=== PATIENT | male | born 1995 | race Caucasian/White ===

== ENCOUNTER → 2017-03-19 | Outpatient (CLI) | payer BC, OTHER | LOC: LAB.R 09:10 | PROVIDERS: ATTEND Nurse Practitioner Family | DX: F90.9 Attention-deficit hyperactivity disorder, unspecified type (principal) | CPT/HCPCS: 80307 ==

== ENCOUNTER 2017-07-06 08:00 | Outpatient (CLI) | payer BC ==
[2017-07-11 02:06] LABS: AMPHETAMINE 3740 ng/mL (< 250); AMPHETAMINES POSITIVE ng/mL (< 500); BARBITURATES NEGATIVE ng/mL (< 300); BENZODIAZEPINES NEGATIVE ng/mL (< 100); CREATININE 63.1 mg/dL (>= 20.0); MARIJUANA METABOLITE NEGATIVE ng/mL (< 20); MEDMATCH AMPHETAMINE INCONSISTENT; MEDMATCH BARBITURATES CONSISTENT (-); MEDMATCH BENZODIAZEPINES CONSISTENT (-); MEDMATCH COCAINE METAB CONSISTENT (-); MEDMATCH MARIJUANA METAB CONSISTENT (-); MEDMATCH METHADONE METAB CONSISTENT (-); MEDMATCH METHAMPHETAMINE CONSISTENT (-); MEDMATCH OPIATES CONSISTENT (-); MEDMATCH OXYCODONE CONSISTENT (-); MEDMATCH PHENCYCLIDINE CONSISTENT (-); METHADONE METABOLITE NEGATIVE ng/mL (< 100); OPIATES NEGATIVE ng/mL (< 100); OXIDANT Negative mcg/mL (< 200); PHENCYCLIDINE NEGATIVE ng/mL (< 25)
== END 2017-07-06 23:59 | disposition home or self-care (01) ==
LOC: LAB.R 08:00
PROVIDERS: ATTEND Nurse Practitioner Family
DX: F90.9 Attention-deficit hyperactivity disorder, unspecified type (principal)
CPT/HCPCS: 80307

== ENCOUNTER 2017-10-19 08:00 | Outpatient (CLI) | payer BC ==
[2017-10-20 11:39] LABS: MUDS CUTOFF CONCENTRATIONS CUTOFF CONC BELOW:
[2017-10-20 11:55] LABS: AMPHETAMINE SCREEN,URINE POSITIVE (NEGATIVE); BENZODIAZEPINES SCREEN, URINE NEGATIVE (NEGATIVE); COCAINE SCREEN URINE NEGATIVE (NEGATIVE); METHADONE SCREEN, URINE NEGATIVE (NEGATIVE); METHAMPHETAMINES SCREEN, URINE NEGATIVE (NEGATIVE); OPIATE SCREEN, URINE NEGATIVE (NEGATIVE); OXYCODONE SCREEN, URINE NEGATIVE (NEGATIVE); PROPOXYPHENE SCREEN, URINE NEGATIVE (NEGATIVE); TRICYCLIC ANTIDEPRESSANT,URINE NEGATIVE (NEGATIVE)
== END 2017-10-19 23:59 | disposition home or self-care (01) ==
LOC: LAB.R 08:00
PROVIDERS: ATTEND Nurse Practitioner Family
DX: F90.9 Attention-deficit hyperactivity disorder, unspecified type (principal); Z79.899 Other long term (current) drug therapy
CPT/HCPCS: 80306

== ENCOUNTER 2018-07-21 08:00 | Outpatient (CLI) | payer BC ==
[2018-07-21 18:15] LABS: MUDS CUTOFF CONCENTRATIONS CUTOFF CONC BELOW:
[2018-07-21 19:01] LABS: AMPHETAMINE SCREEN,URINE POSITIVE (NEGATIVE); BENZODIAZEPINES SCREEN, URINE NEGATIVE (NEGATIVE); COCAINE SCREEN URINE NEGATIVE (NEGATIVE); METHADONE SCREEN, URINE NEGATIVE (NEGATIVE); METHAMPHETAMINES SCREEN, URINE NEGATIVE (NEGATIVE); OPIATE SCREEN, URINE NEGATIVE (NEGATIVE); OXYCODONE SCREEN, URINE NEGATIVE (NEGATIVE); PROPOXYPHENE SCREEN, URINE NEGATIVE (NEGATIVE); TRICYCLIC ANTIDEPRESSANT,URINE NEGATIVE (NEGATIVE)
== END 2018-07-21 23:59 | disposition home or self-care (01) ==
LOC: LAB.R 08:00
PROVIDERS: ATTEND Nurse Practitioner Family
DX: F90.9 Attention-deficit hyperactivity disorder, unspecified type (principal); Z79.899 Other long term (current) drug therapy
CPT/HCPCS: 80306

== ENCOUNTER 2018-12-15 08:00 | Outpatient (CLI) | payer BC ==
[2018-12-15 10:35] LABS: AMPHETAMINE SCREEN,URINE POSITIVE (NEGATIVE); COCAINE SCREEN URINE NEGATIVE (NEGATIVE); METHAMPHETAMINES SCREEN, URINE NEGATIVE (NEGATIVE); MUDS CUTOFF CONCENTRATIONS CUTOFF CONC BELOW:
[2018-12-15 10:36] LABS: BENZODIAZEPINES SCREEN, URINE NEGATIVE (NEGATIVE); METHADONE SCREEN, URINE NEGATIVE (NEGATIVE); OPIATE SCREEN, URINE NEGATIVE (NEGATIVE); OXYCODONE SCREEN, URINE NEGATIVE (NEGATIVE); PROPOXYPHENE SCREEN, URINE NEGATIVE (NEGATIVE); TRICYCLIC ANTIDEPRESSANT,URINE NEGATIVE (NEGATIVE)
== END 2018-12-15 23:59 | disposition home or self-care (01) ==
LOC: LAB 08:00
PROVIDERS: ATTEND Nurse Practitioner Family
DX: F90.9 Attention-deficit hyperactivity disorder, unspecified type (principal); Z79.899 Other long term (current) drug therapy
CPT/HCPCS: 80306

== ENCOUNTER 2021-10-25 08:00 | Outpatient (CLI) | payer BC, MEDICAID ==
[2021-10-25 16:05] LABS: BASOPHILS # (AUTO) 0.1 10^3/uL (0.0-0.1); BASOPHILS % (AUTO) 1.1 %; EOSINOPHILS # (AUTO) 0.2 10^3/uL (0.0-0.7); EOSINOPHILS % (AUTO) 4.4 %; HCT - HEMATOCRIT 45.9 % (42.0-52.0); HGB - HEMOGLOBIN 15.5 g/dL (14.0-18.0); LYMPHOCYTES # (AUTO) 2.1 10^3/uL (1.5-3.5); LYMPHOCYTES % (AUTO) 40.1 %; MEAN CORPUSCULAR HEMOGLOBIN 30.2 pg (27.0-31.0); MEAN CORPUSCULAR HGB CONC 33.8 g/dL (32.0-36.0); MEAN CORPUSCULAR VOLUME 89.5 fL (80.0-94.0); MEAN PLATELET VOLUME 9.7 fL (7.4-11.4); MONOCYTES # (AUTO) 0.4 10^3/uL (0.0-1.0); MONOCYTES % (AUTO) 8.4 %; NEUTROPHILS # (AUTO) 2.4 10^3/uL (1.5-6.6); NEUTROPHILS % (AUTO) 45.6 %; PLT - PLATELET COUNT 297 10^3/uL (130-450); RED BLOOD COUNT 5.13 10^6/uL (4.70-6.10); RED CELL DISTRIBUTION WIDTH 12.2 % (12.0-15.0); WHITE BLOOD COUNT 5.2 x10^3/uL (4.8-10.8)
[2021-10-25 16:27] LABS: ALBUMIN 4.4 g/dL (3.2-5.5); ALBUMIN/GLOBULIN RATIO 1.6 (1.0-2.2); BILIRUBIN,TOTAL 0.7 mg/dL (0.2-1.0); CALCIUM 9.2 mg/dL (8.5-10.3); CREATININE 0.7 mg/dL (0.6-1.2); TOTAL PROTEIN 7.2 g/dL (6.7-8.2)
[2021-10-25 17:40] LABS: THYROID STIMULATING HORMONE 1.15 uIU/mL (0.34-5.60)
== END 2021-10-25 23:59 | disposition home or self-care (01) ==
LOC: LAB.S 08:00
PROVIDERS: ATTEND Physician Assistant Medical
DX: Z79.899 Other long term (current) drug therapy (principal)
CPT/HCPCS: 36415; 80053; 84443; 85025

== ENCOUNTER 2023-06-02 19:32 | Emergency (ER) | payer MEDICAID ==
[2023-06-02 19:41] VITALS: BP 133/86; O2SAT 100
--- OUTSIDE RECORDS SUMMARY | 2023-06-02 19:53 | EXTERNAL MEDICAL SUMMARY RPT | Continuity of Care Document ---
Author Name Unknown Address [address] [place] [address] Phone Organization [facility] Address [address] [place] [address] Phone Care Team Providers Care Computational Theory Scientist Name Role Phone Unavailable Unavailable Unavailable Lisbeth Hall Unavailable Unavailable Medications date description facility 2023-03-13 00:00 dextroamphetamine-amphetamine A 2023-04-11 00:00 dextroamphetamine-amphetamine A 2023-05-10 00:00 dextroamphetamine-amphetamine A 2023-06-08 00:00 dextroamphetamine-amphetamine A 2023-03-13 00:00 dextroamphetamine-amphetamine A 2023-04-11 00:00 dextroamphetamine-amphetamine A 2023-05-10 00:00 dextroamphetamine-amphetamine A 2023-06-08 00:00 dextroamphetamine-amphetamine A 2023-03-13 00:00 dextroamphetamine-amphetamine A 2023-04-11 00:00 dextroamphetamine-amphetamine A 2023-05-10 00:00 dextroamphetamine-amphetamine A 2023-06-08 00:00 dextroamphetamine-amphetamine A 2023-03-13 00:00 dextroamphetamine-amphetamine A 2023-04-11 00:00 dextroamphetamine-amphetamine A 2023-05-10 00:00 dextroamphetamine-amphetamine A 2023-06-08 00:00 dextroamphetamine-amphetamine A Procedures date description facility 2023-03-31 00:00 Visit Code Hold All Social History date description facility 2023-03-31 00:00 Never smoker All Vital Signs date measurement value units 2023-03-31 00:00 BMI 29.94 kg/m2 2023-03-31 00:00 BP_diastolic 77 mmHg 2023-03-31 00:00 BP_systolic 139 mmHg 2023-03-31 00:00 heart_rate 75 /min 2023-03-31 00:00 height_metric 175.26 cm 2023-03-31 00:00 height_standard 69 in 2023-03-31 00:00 respiration_rate 18 /min 2023-03-31 00:00 temperature_metric 36.28 C 2023-03-31 00:00 temperature_standard 97.3 F 2023-03-31 00:00 weight_metric 91.63 kg 2023-03-31 00:00 weight_standard 202 lb
[2023-06-02] MEDS ORDERED: LIDOCAINE 2% 10 ML MDV SUBQ ONE (20:04)
[2023-06-02] MEDS ORDERED: LIDOCAINE-MPF 2% 5 ML VIAL SUBQ ONE (21:00)
[2023-06-02] MEDS ORDERED: cephALEXin 250 MG CAPSULE PO STA (21:02)
[2023-06-02] MEDS ORDERED: TETANUS/DIPHTHERIA/PERTUSSIS 0.5 ML SYRINGE IM ONE (21:03)
--- NOTE | 2023-06-02 21:06 | ED Physician Documentation ---
PD HPI UPPER EXT INJURY - Stated complaint Stated Complaint: R HAND LAC - Chief complaint Chief Complaint: Laceration - History obtained from History obtained from: Patient - History of Present Illness Location: Right, Finger (index) Type of injury: Laceration Pain level max: 3 Pain level now: 3 Improved by: Rest Worsened by: Moving, Palpating Associated symptoms: No: Weakness, Numbness, Tingling, Swelling Contributing factors: No: Anticoagulated - Additonal information Additional information: 27-year-old right-handed male presents to the emergency department for laceration to the right index finger while working on a [employer] tonight. Worse with movement, better with rest. Not anticoagulated. Review of Systems Constitutional: denies: Fever, Chills PD PAST MEDICAL HISTORY - Past Medical History Past Medical History: No Cardiovascular: None Respiratory: None Neuro: None Endocrine/Autoimmune: None GI: None : None HEENT: None Psych: None Musculoskeletal: None Derm: None - Present Medications Home Medications: Ambulatory Orders Medication Instructions Recorded Confirmed cephALEXin [Keflex] 500 mg PO Q6H #28 cap 06/02/23 - Allergies Allergies/Adverse Reactions: Allergies Allergy/AdvReac Type Severity Reaction Status Date / Time No Known Drug Allergies Allergy Verified 06/02/23 19:40 - Social History Does the pt smoke?: No Smoking Status: Never smoker PD ED PE NORMAL - Vitals Vital signs reviewed: Yes - General General: Alert and oriented X 3, No acute distress - Derm Derm: Warm and dry - Extremities Extremities: Other (R index - 2 lacerations, one is on the palmar aspect, approximately 1.5 cm in length, subcutaneous. Tendon intact. Neurovascular intact. The second is approximately 1 cm, on the dorsum of the finger, neurovascular intact. Tendon intact. Subcutaneous) - Neuro Neuro: Alert and oriented X 3 Results - Vitals Vitals: Vital Signs - 24 hr 06/02/23 19:33 Temperature 36.8 C Heart Rate 76 Respiratory 16 Rate Blood Pressure 133/86 H O2 Saturation 100 Oxygen O2 Source Room air Procedures - Laceration (location) R index finger palmar Length in cm: 1.5 Wound type: Into subcut fat, Clean Neurovascular status: Sensory intact, Motor intact, Vascular intact Tendon involvement: Tendon intact Anesthesia: Lidocaine 2% Wound preparation: Chlorhexadine, Irrigated copiously NS Skin layer closure: Nylon, Interrupted, Size #-0 - enter number (4) Other: Patient tolerated well, No complications, Neurovascular intact, Dressing applied, Tetanus booster given R index finger dorsum Length in cm: 1 Wound type: Linear, Into subcut fat Neurovascular status: Sensory intact, Motor intact, Vascular intact Tendon involvement: Tendon intact Anesthesia: Lidocaine 2% Wound preparation: Chlorhexadine, Irrigated copiously NS Skin layer closure: Nylon, Interrupted, Size #-0 - enter number (4) Other: Patient tolerated well, No complications, Neurovascular intact, Dressing applied, Tetanus booster given PD Medical Decision Making - ED course Complexity details: reviewed results, re-evaluated patient, considered differential, d/w patient ED course: Lacerations repaired. Tolerated well. Tdap given. Wounds were cleansed and bandaged. He was working on dirty equipment when the wound occurred, therefore he placed on Keflex. No tendon injury. Neurovascularly intact. Warnings of infection and instructions on wound care given at bedside. Also counseled on how to minimize scarring. Patient counseled regarding signs and symptoms for which I believe and urgent re-evaluation would be necessary. Patient with good understanding of and agreement to plan and is comfortable going home at this time This document was made in part using voice recognition software. While efforts are made to proofread this document, sound alike and grammatical errors may occur. Departure - Departure Disposition: 01 Home, Self Care Clinical Impression: Finger laceration Qualifiers: Encounter type: initial encounter Finger: index finger Damage to nail status: without damage Foreign body presence: without foreign body Laterality: right Qualified Code(s): S61.210A - Laceration without foreign body of right index finger without damage to nail, initial encounter Condition: Good Instructions: ED Laceration Hand Follow-Up: Lisbeth Espitia ARNP [Primary Care Provider] - (in 10 days for suture removal ) Prescriptions: cephALEXin [Keflex] 500 mg PO Q6H #28 cap Comments: Take all antibiotics until gone. Please follow-up with your doctor in approximately 10 days for suture removal. Please return if you notice redness, swelling or drainage from the wound. Your prescriptions were sent to [facility]. Keep the wound clean. Forms: PCP List Discharge Date/Time: 06/02/23 21:33
== END 2023-06-02 21:33 | disposition home or self-care (01) ==
LOC: ED 19:32
DX: S61.210A Laceration without foreign body of right index finger without damage to nail, initial encounter (principal); W45.8XXA Other foreign body or object entering through skin, initial encounter; Y93.89 Activity, other specified; Z23 Encounter for immunization
CPT/HCPCS: 12001; 90471; 90715; 99283; A9270